=== PATIENT | female | born 1995 | race Caucasian/White ===

== ENCOUNTER 2019-12-04 01:49 | Inpatient (IN) | payer OTHER ==
[~2019-12-04] VITALS: Ht 162.6 cm; Wt 71.2 kg
[2019-12-04 02:04] VITALS: BP 108/60
--- NOTE | 2019-12-04 02:32 | NUR ---
24 Y/O F PRESENTS TO ED C/O INTERMITTENT RLQ PAIN X1 DAY AND HEAVY SPOTTING X 2 DAYS. PT STATES SHE FOUND OUT SHE IS 4 DAYS AGO. PT STATES HER BLEEDING IS RIGHT RED AND SATURATES HALF A PAD EVERY HOUR. PT DENIES TRAUMA OR INJURY. PT IS NAUSEATED BUT DENIES VOMITING AND DIARRHEA. PMH: IDIOPATHIC THROMBOCYTOPENIC PURPURA NKA
[2019-12-04 02:52] LABS: APPEARANCE,URINE CLOUDY (CLEAR); BILIRUBIN,URINE 1+ (NEGATIVE); BLOOD, URINE 3+ (NEGATIVE); COLOR,URINE RED (YELLOW); LEUKOCYTE ESTERASE ,URINE TRACE (NEGATIVE); NITRITE, URINE POSITIVE (NEGATIVE); UGLUCOSE NEGATIVE (NEGATIVE)
[2019-12-04 02:53] LABS: BASOPHILS # (AUTO) 0.1 K/uL (0.00-0.22); HEMOGLOBIN 12.3 g/dL (12.0-16.0); MONOCYTES # (AUTO) 0.7 K/uL (0.8-1.0); MONOCYTES % (AUTO) 6.8 % (1.7-9.3); RED CELL DISTRIBUTION WIDTH 14.3 % (11.6-13.7); WHITE BLOOD COUNT (AUTO) 9.7 K/uL (4.8-10.8)
[2019-12-04 02:56] LABS: BASOPHILS % (AUTO) 1.5 % (0.0-2.0); EOSINOPHILS # (AUTO) 0.3 K/uL (0-0.4); EOSINOPHILS % (AUTO) 3.4 % (0.0-4.0); HEMATOCRIT 36.3 % (36-48); LYMPHOCYTES # (AUTO) 3.2 K/uL (2.5-16.5); LYMPHOCYTES % (AUTO) 32.9 % (20.5-51.1); MEAN CORPUSCULAR HEMOGLOBIN 30 pg (27-31); MEAN CORPUSCULAR HGB CONC 34 g/dL (33-37); MEAN CORPUSCULAR VOLUME 87.2 fL (80-94); NEUTROPHILS # (AUTO) 5.4 K/uL (1.8-7.7); NEUTROPHILS % (AUTO) 55.4 % (42.2-75.2); RED BLOOD CELL COUNT(AUTO) 4.16 MIL/uL (4.20-5.40)
[2019-12-04 03:02] LABS: RBC,URINE TOO NUMEROUS TO COUN /HPF (0-5); WBC,URINE 0-5 /HPF (0-5)
[2019-12-04 03:13] LABS: PROTHROMBIN TIME 9.6 secs (10.8-13.4)
[2019-12-04 03:17] LABS: PLATELET COUNT (AUTO) 9 K/uL (140-450)
--- NOTE | 2019-12-04 03:19 | NUR ---
RECEIVED CRITICAL LAB REPORT FROM [facility], PLT [address]. DR. GLEASON AWARE. PHYSICIAN TO SEE PT.
--- NOTE | 2019-12-04 03:44 | NUR ---
US AT BEDSIDE.
[2019-12-04] MEDS ORDERED: ONDANSETRON 4 MG/2 ML VIAL IM/IVP PRN (06:50)
[2019-12-04] MEDS ORDERED: ACETAMINOPHEN 325 MG TAB PO PRN (06:50)
[2019-12-04] MEDS ORDERED: DOCUSATE SODIUM 100 MG GELCAP PO PRN (06:50)
[2019-12-04 07:20] VITALS: BP 104/59
--- NOTE | 2019-12-04 07:20 | NUR ---
RECEIVED BEDSIDE REPORT FROM ED NURSE. PT RESTING IN BED. ABLE TO MAKE NEEDS KNOWN. RESPIRATIONS EVEN AND UNLABORED WITH NO SOB OR RESPIRATORY DISTRESS. SKIN WARM AND DRY TO TOUCH. IV SITE IN RAC 20G IS CLEAN, DRY, AND INTACT. MRSA SWAB COLLECTED. SAFETY MEASURES IN PLACE. WILL CONTINUE TO MONITOR
--- NOTE | 2019-12-04 07:22 | NUR ---
Patient will be admitted to care of DR. ELKINS. Admited to TELE. Will go to room 105A. Belongings list completed. Report to ARCHIE MILLAN.
[2019-12-04 07:45] LABS: BARBITURATE, URINE NEGATIVE ng/ml (NEG <=200); BENZODIAZEPINE, URINE NEGATIVE ng/mL (NEG <=200); CANNABINOID, URINE NEGATIVE ng/mL (NEG <=50); COCAINE, URINE NEGATIVE ng/mL (NEG <=300); OPIATE, URINE NEGATIVE ng/mL (NEG <=2000); PHENCYCLIDINE SCREEN,URINE NEGATIVE ng/mL (NEG <=25)
[2019-12-04 07:51] LABS: CHOL/HDL RATIO 2.6 (1-4.5); FREE T4 (FREE THYROXINE) 1.06 ng/dL (0.76-1.46); MAGNESIUM 1.9 mg/dL (1.8-2.4); PHOSPHORUS 3.8 mg/dL (2.5-4.9); THYROID STIMULATING HORMONE 4.57 uIU/mL (0.34-3.74)
[2019-12-04] MEDS ORDERED: DEXAMETHASONE 4 MG/ML VIAL IVP SCH ×2 (08:30→19:00)
[2019-12-04] MEDS: NACL 0.9% 1,000 ML IV SCH ×2 (09:10→16:24)
--- NOTE | 2019-12-04 09:25 | NUR ---
ADMINISTERED SCHED MED PRESCRIBED PER MD ORDER. PT TOLERATED WELL. MEDICATION EDUCATION PERFORMED. PT VERBALIZED UNDERSTANDING. SAFETY MEASURES IN PLACE. WILL CONTINUE TO MONITOR
--- NOTE | 2019-12-04 10:00 | NUR ---
STARTED PLATELETPHERESIS. PRE VITAL SIGNS OBTAINED PRIOR TO HANGING. VERIFIED WITH SECOND NURSE. SAFETY MEASURES IN PLACE. WILL CONTINUE TO MONITOR
--- NOTE | 2019-12-04 11:02 | NUR ---
HOURLY ROUNDING. PT RESTING IN BED AND TOLERATING TRANSFUSION. ABLE TO MAKE NEEDS KNOWN. RESPIRATIONS EVEN AND UNLABORED WITH NO SOB OR RESPIRATORY DISTRESS. SKIN WARM AND DRY TO TOUCH. SAFETY MEASURES IN PLACE. WILL CONTINUE TO MONITOR
[2019-12-04 12:00] VITALS: BP 95/52
[2019-12-04] MEDS ORDERED: predniSONE 20 MG TAB PO SCH (12:00)
--- NOTE | 2019-12-04 12:00 | NUR ---
1 UNIT OF PLATELETS HAVE BEEN INFUSED. PT TOLERATED WELL. NO ADVERSE REACTIONS OR INSTABILITY. OBTAINED 2ND BAG OF PLATELETS. VITALS OBTAINED PRIOR TO HANGING. VERIFIED WITH SECOND NURSE. STARTED PLATELET PHERESIS.. WILL CONTINUE TO MONITOR
--- NOTE | 2019-12-04 12:44 | NUR ---
ADMINISTERED SCHED MED PRESCRIBED PER MD ORDER. PT TOLERATED WELL. MEDICATION EDUCATION PERFORMED. PT VERBALIZED UNDERSTANDING. SAFETY MEASURES IN PLACE. WILL CONTINUE TO MONITOR
[2019-12-04] MEDS ORDERED: MULTIVIT/MIN/CA/FE/FA 1 TAB PO SCH (13:00)
--- NOTE | 2019-12-04 13:30 | NUR ---
PT COMPLETED 2ND UNIT OF PLATELETS. PT TOLERATED WELL. NO SIGNS OF DISTRESS OR COMPLICATIONS AT THIS TIME. RESDIENT IS AWARE OF COMPLETION. SAFETY MEASURES IN PLACE. WILL CONTINUE TO MONITOR.
[2019-12-04 14:44] LABS: BASOPHILS # (AUTO) 0.1 K/uL (0.00-0.22); BASOPHILS % (AUTO) 0.6 % (0.0-2.0); EOSINOPHILS % (AUTO) 0.1 % (0.0-4.0); HEMATOCRIT 36.5 % (36-48); HEMOGLOBIN 12.1 g/dL (12.0-16.0); LYMPHOCYTES # (AUTO) 0.7 K/uL (2.5-16.5); LYMPHOCYTES % (AUTO) 5.8 % (20.5-51.1); MEAN CORPUSCULAR HEMOGLOBIN 29 pg (27-31); MEAN CORPUSCULAR HGB CONC 33 g/dL (33-37); MEAN CORPUSCULAR VOLUME 88.1 fL (80-94); MONOCYTES # (AUTO) 0.1 K/uL (0.8-1.0); MONOCYTES % (AUTO) 0.8 % (1.7-9.3); NEUTROPHILS # (AUTO) 10.6 K/uL (1.8-7.7); NEUTROPHILS % (AUTO) 92.7 % (42.2-75.2); PLATELET COUNT (AUTO) 36 K/uL (140-450); RED BLOOD CELL COUNT(AUTO) 4.14 MIL/uL (4.20-5.40); RED CELL DISTRIBUTION WIDTH 13.9 % (11.6-13.7); WHITE BLOOD COUNT (AUTO) 11.5 K/uL (4.8-10.8)
--- NOTE | 2019-12-04 14:51 | NUR ---
HOURLY ROUNDING. PT RESTING IN BED. ABLE TO MAKE NEEDS KNOWN. RESPIRATIONS EVEN AND UNLABORED WITH NO SOB OR RESPIRATORY DISTRESS. SKIN WARM AND DRY TO TOUCH. SAFETY MEASURES IN PLACE. WILL CONTINUE TO MONITOR
[2019-12-04 15:19] LABS: ALBUMIN 3.9 g/dL (3.4-5.0); BILIRUBIN,DIRECT 0.1 mg/dL (0.0-0.3); TOTAL BILIRUBIN 0.6 mg/dL (0.0-1.0)
[2019-12-04 16:00] VITALS: BP 97/48
--- NOTE | 2019-12-04 16:24 | NUR ---
ADMINISTERED SCHED IVF PRESCRIBED PER MD ORDER. PT TOLERATED WELL. MEDICATION EDUCATION PERFORMED. PT VERBALIZED UNDERSTANDING. SAFETY MEASURES IN PLACE. WILL CONTINUE TO MONITOR
--- NOTE | 2019-12-04 18:12 | NUR ---
ADMINISTERED SCHED MED PRESCRIBED PER MD ORDER. PT TOLERATED WELL. MEDICATION EDUCATION PERFORMED. PT VERBALIZED UNDERSTANDING. SAFETY MEASURES IN PLACE. WILL CONTINUE TO MONITOR
--- NOTE | 2019-12-04 19:16 | NUR ---
ENDORSED AT BEDSIDE WITH NIGHTSHIFT NURSE. PT IS STABLE
--- NOTE | 2019-12-04 19:17 | NUR ---
RECEIVED BEDSIDE REPORT FROM DAY SHIFT NURSE. PATIENT IS AWAKE, ALERT, AND COOPERATIVE. RESPIRATION EVEN UNLABORED ON ROOM AIR. NO DISTRESS NOTED. SKIN IS WARM AND DRY. IV PATENT AND INTACT. PLAN OF CARE WAS DISCUSSED. ALL SAFETY MEASURES IN PLACED. BED IS AT LOW POSITION. CALL LIGHT WITHIN REACH AND VERBALIZES ITS USE. WILL CONTINUE TO MONITOR.
[2019-12-04 20:00] VITALS: BP 105/52
--- NOTE | 2019-12-04 20:10 | NUR ---
INITIAL ASSESSMENT DONE. VITALS WERE TAKEN. PATIENT DENIES VAGINAL BLEEDING AT THIS TIME. CALL LIGHT WITHIN REACH AND VERBALIZES ITS USE. WILL CONTINUE TO MONITOR.
--- NOTE | 2019-12-04 21:13 | NUR ---
CHECKED PATIENT. PATIENT IS TALKING ON THE PHONE. NO DISTRESS NOTED. CALL LIGHT WITHIN REACH. WILL CONTINUE TO MONITOR.
[2019-12-05] VITALS: BP 117/66
--- NOTE | 2019-12-05 | NUR ---
PATIENT COMPLAINED OF MILD HEADACHE 12/01. PRN PAIN MED ADMINISTERED PER ORDER. CALL LIGHT WITHIN REACH. WILL CONTINUE TO MONITOR.
[2019-12-05] MEDS: NACL 0.9% 1,000 ML IV SCH ×2 (00:51→02:14)
--- NOTE | 2019-12-05 02:02 | NUR ---
CHECKED PATIENT. PATIENT SLEEPING RESPIRATION EVEN UNLABORED ON ROOM AIR. NO DISTRESS NOTED. WILL CONTINUE TO MONITOR.
[2019-12-05 04:00] VITALS: BP 99/47
--- NOTE | 2019-12-05 04:10 | NUR ---
VITALS WERE TAKEN. PATIENT IN STABLE CONDITION. NO DISTRESS NOTED.WILL CONTINUE TO MONITOR.
--- NOTE | 2019-12-05 07:19 | NUR ---
ENDORSED PATIENT TO DAY SHIFT NURSE. PATIENT IN STABLE CONDITION. WILL CONTINUE TO MONITOR.
--- NOTE | 2019-12-05 07:21 | NUR ---
RECEIVED BEDSIDE REPORT FROM [facility] NURSE [facility] FOR CONTINUITY OF CARE. PT IS AWAKE AND RESTING ON BED AT THIS TIME. PT IS AAOX4, ABLE TO MAKE NEED KNOWN AND FOLLOW COMMAND. RESPIRATION EVEN AND UNLABORED ON RA. DENIED PAIN, SOB AND BLEEDING AT THIS TIME. NO SIGNS OF DISTRESS NOTED. IV ON RAC 20G, CLEAN AND INTACT, INFUSING NS AT 115 ML/HR. SKIN CLEAN AND DRY. PT IS CONTINENT AND AMBULATORY WITH STEADY GAIT. DISCUSSED PLAN OF CARE WITH PT AND PT VERBALIZED UNDERSTANDING. TELE MONITOR ATTACHED. SAFETY MEASURES IN PLACE. BED IN LOW POSITION AND CALL LIGHT WITHIN REACH. INSTRUCTED PT TO USE THE CALL LIGHT FOR ANY ASSISTANCE AND PT WAS AWARE.
[2019-12-05 08:00] VITALS: BP 100/60
--- NOTE | 2019-12-05 08:36 | NUR ---
INFORMED PT THAT SHE WILL BE DC HOME TODAY AND AWAITING FOR MD TO COMPLETE DC INFORMATION. PT AWARE AND SAID HER BOYFRIEND WILL BE ABLE TO PICK HER UP AROUND LUNCH TIME. DR CHENG IS BY BEDSIDE. ADMINISTERED AM SCHEDULED MEDS PER MD ORDER, MEDS EDUCATION PROVIDED AND PT VERBALIZED UNDERSTANDING. PT TOLERATED PO MEDS WELL. PT DENIED PAIN, SOB AND ANY BLEEDING AT THIS TIME. NO SIGNS OF DISTRESS NOTED. TELE MONITOR ATTACHED. SAFETY MEASURES IN PLACE. INSTRUCTED PT TO USE THE CALL LIGHT FOR ANY ASSISTANCE AND PT AWARE.
--- NOTE | 2019-12-05 08:54 | NUR ---
PATIENT HAS BEEN SCREENED AND CATEGORIZED LOW NUTRITION RISK. PATIENT WILL BE SEEN WITHIN 7 DAYS OF ADMISSION. 12/10/[address]
[2019-12-05] MEDS ORDERED: DEXAMETHASONE 4 MG/ML VIAL IVP SCH (09:00)
[2019-12-05] MEDS ORDERED: predniSONE 20 MG TAB PO SCH (09:00)
[2019-12-05] MEDS ORDERED: MULTIVIT/MIN/CA/FE/FA 1 TAB PO SCH (09:00)
[2019-12-05] MEDS ORDERED: PRED20TA5 PO (09:16)
[2019-12-05] MEDS ORDERED: CEPH500C16 PO (09:16)
[2019-12-05] MEDS ORDERED: PRETAB PO (09:16)
--- NOTE | 2019-12-05 09:50 | NUR ---
PT IS AWAKE AND RESTING ON BED AT THIS TIME. DENIED PAIN, SOB AND BLEEDING. NO SIGNS OF DISTRESS NOTED. REMOVED TELE MONITOR BOX AND RETURNED TO TELE TRANSPORTATION DESIGN ENGINEER. AWAITING FOR BOYFRIEND TO ARRIVE FOR DC. SAFETY MEASURES IN PLACE.
--- NOTE | 2019-12-05 11:02 | NUR ---
DISCHARGE PLANNING: THIS IS A 24 Y/O FEMALE PATIENT FROM HOME, WHO CAME IN DUE TO VAGINAL BLEEDING X 2 DAYS. PAST MEDICAL HISTORY INCLUDE ITP, BILATERAL OVARIAN CYSTS AND OVARIAN CYST RUPTURE. INITIAL DIAGNOSIS OF THROMBOCYTOPENIA. CURRENT LABS WNL. OB GYNE, PULMO CONSULTS IN PLACE. FOR POSSIBLE DC TODAY.
--- NOTE | 2019-12-05 11:16 | NUR ---
DISCHARGE INSTRUCTION PROVIDED TO PT AT BEDSIDE. EDUCATED PT ON FOLLOW UP WITH MD AFTER DC, SEEK MEDICAL HELP IN CASE OF MEDICAL EMERGENCY, DISEASE MANAGEMENT, MEDICATIONS REGIMEN AND SIDE EFFECTS. ANSWERED ALL PT'S QUESTIONS AND PT VERBALIZED UNDERSTANDING. PT REFUSED FLU VACCINE AND NOT APPLICABLE FOR PNA VACCINE, VACCINATION EDUCATION PROVIDED. PT AWARE THAT HER PRESCRIPTION SENT TO HER PREFERRED PHARMACY [facility] IN [place]. PT IS GOING TO CHANGE INTO HER OWN CLOTHES AT THIS TIME. NO SIGNS OF DISTRESS NOTED. INSTRUCTED PT TO USE THE CALL LIGHT FOR ASSISTANCE ONCE SHE IS DONE CHANGING, AND PT AWARE.
--- NOTE | 2019-12-05 11:29 | NUR ---
REMOVED IV AND CANNULA INTACT, NO BLEEDING ON IV SITE. REMOVED ALL ARM BANDS. PT PACKED UP ALL HER BELONGINGS AND TOOK ALL HER BELONGINGS HOME. PROVIDED HARD COPY OF DISCHARGE INSTRUCTION. WALKED PT TO THE FRONT LOBBY. PT IS GOING TO DC HOME AT THIS TIME ACCOMPANY WITH HER BOYFRIEND. PT IS IN STABLE CONDITION.
--- NOTE | 2019-12-05 13:42 | NUR ---
Customer Service Advocate Note: Patient is a 24-year-old female admitted for thrombocytopenia. Patient has PMHX of ITP, bilateral ovarian cysts, and ovarian cyst ruptures. Patient was admitted from home. SW attempted to meet patient at bedside to verify demographics but patient discharged. No further needs identified.
== END 2019-12-05 11:29 | disposition home or self-care (01) | DRG 832 ==
LOC: MED 01:49 → MTU 06:29
PROVIDERS: ADMIT General Practice; ATTEND General Practice
PROC: 30233R1 Transfusion of Nonautologous Platelets into Peripheral Vein, Percutaneous Approach (ICD-10-PCS; principal; 2019-12-04)
DX: O99.111 Other diseases of the blood and blood-forming organs and certain disorders involving the immune mechanism complicating pregnancy, first trimester (principal); D69.3 Immune thrombocytopenic purpura; Z86.2 Personal history of diseases of the blood and blood-forming organs and certain disorders involving the immune mechanism; O23.41 Unspecified infection of urinary tract in pregnancy, first trimester; O46.91 Antepartum hemorrhage, unspecified, first trimester; Z3A.01 Less than 8 weeks gestation of pregnancy; Z91.19 Patient's noncompliance with other medical treatment and regimen
CPT/HCPCS: 36415; 76705; 76817; 80076; 80305; 81001; 81025; 82150; 82550; 83036; 83605; 83615; 83690; 83735; 83880; 84100; 84439; 84443; 84484; 84702; 85025; 85610; 85730; 86886; 86900; 86901; 87081; 87086; 93005; 99285; J0696; J1100; J7030; J7060; J7512; P9035; Q0092